=== PATIENT | male | born 1960 | race American Indian/Alaskan Native ===

== ENCOUNTER 2018-01-20 14:56 | Emergency (ER) | payer OTHER ==
[~2018-01-20 14:56] MED LIST: SUBLIMAZE IV ONE
--- NOTE | 2018-01-20 18:24 | Emergency Department Report ---
ED General Adult HPI - General Chief complaint: Multiple Trauma Stated complaint: FALL Time Seen by Provider: 01/20/18 18:24 Source: police, EMS, RN notes reviewed Mode of arrival: Ambulatory Limitations: Altered Mental Status - History of Present Illness Initial comments: Patient apparently fell while getting out of his upper bunk at snf. Patient was found approximately 5 hours prior to arrival unconscious on the floor of his cell, with bruising to the right side of his face at the lateral aspect of the eye. Estimated potential distance of fall 5 foot, but is uncertain if patient fell directly to floor, or slipped and struck head on bed rail while getting out of bed . Report from snf received sometime after patient's arrival, with history of patient being a 57-year-old male with swelling around the right eye secondary to a fall. [place] on scene found patient unconscious and prone on the floor of the cell, with suspicion for having fallen from the top bunk, which is where patient resided and slept. Fall was not witnessed, and it is uncertain for the duration of patient's presence on the floor. Patient's normal status was that of normal mobility and speaking in incomplete sentences. Is found to be incontinent. Patient GCS at that time was 9, with eye movements at level of 2, verbal movements score of 2, motor movement of 5, with stable vital signs blood pressure 158/108, pulse of 60, respiratory rate of 16, blood glucose of 137. Patient was moved to stretcher, secured with stretcher straps and restraint sapling, and extricated from facility. Obvious deformity of nose was noted, with swelling and contusion of right eye and dried blood in both nares, teeth were intact, chest, abdomen and extremities were examined, with abdomen being noted to be rigid, but chest into equal rise and extremity showing "weakness". Respirations were regular and unlabored. MD Complaint: altered mental status -: hour(s) (5 hours) Location: head (patient unable to give any history, limited history obtained from report by snf), face Quality: other (unable to determine due to altered mental status) - Related Data Allergies Allergy/AdvReac Type Severity Reaction Status Date / Time Penicillins Allergy Mild Anaphylaxis Verified 01/20/18 18:03 ED Review of Systems ROS: Stated complaint: FALL Other details as noted in HPI Comment: Unobtainable due to pts medical conditions ED Past Medical Hx - Past Medical History Previous Medical History?: No - Surgical History Past Surgical History?: No - Social History Smoking Status: Unknown if ever smoked Substance Use Type: Other (unknown) ED Physical Exam - General Limitations: Altered Mental Status General appearance: other (poorly responsive, but no acute distress, appears to be resting comfortably, almost sleeping, but no abnormal posturing, makes intermittent spontaneous movements such as repositioning or clasping hand comfortably) - Head Head exam: Present: atraumatic - Eye Eye exam: Present: PERRL, conjunctival injection, other (contusion right periorbital area with hematoma/swelling superior orbit and lid, subacute chart tidal hemorrhage right eye) - ENT ENT exam: Present: other (contusion nasal bridge, small laceration/abrasion, minimal bleeding) - Neck Neck exam: Present: normal inspection (palpation of neck or paracervical spinal tissue does not elicit discomfort or withdrawal posturing), other (no bony step off). Absent: tenderness - Respiratory Respiratory exam: Present: normal lung sounds bilaterally - Cardiovascular Cardiovascular Exam: Present: regular rate - GI/Abdominal GI/Abdominal exam: Present: soft. Absent: tenderness, guarding, rebound - Rectal Rectal exam: Present: deferred - Extremities Exam Extremities exam: Present: normal inspection. Absent: tenderness ED Course Vital Signs 01/20/18 18:03 Temperature 98.1 F Pulse Rate 78 Respiratory 16 Rate Blood Pressure 168/108 O2 Sat by Pulse 99 Oximetry - Reevaluation(s) Reevaluation #1: 01/20/18 20:14 Notified of bilateral subdural hematomas as a result of C-spine reading by Dr. Hernandez, still awaiting response from CT brain results Reevaluation #2: 01/20/18 20:56 CT scan report shows bilateral subdural hematomas, measuring 14 mm on right, 18 mm on left, with a significant 10 mm left to right tentorial herniation, as well as 10 mm subtentorial cerebellar hemorrhage noted as well. Patient intubated for airway control with rapid sequence intubation, using 20 mg etomidate, followed by 50 mg of rocuronium in succession, and patient's sedation was maintained with Diprivan drip, titrated to maintain sedation and as needed fentanyl for pain control and sedation. - Consultations Consultation #1: 01/20/18 20:58 Consultation with [facility] trauma service initiated, with description of bilateral subdural hematoma with tentorial shift, and treatment administered up-to-date including intubation, secondary to ventilation control, infusion of mannitol, and patient was accepted by Dr. Valencia, trauma surgeon. Time of acceptance 2050 hrs. ED Medical Decision Making - Radiology Data Radiology results: report reviewed Significant bilateral subdural hematomas with left to right tentorial shift of 10 mm Multiple facial fractures identified including nondisplaced right zygoma fracture, medial and inferior right orbital wall fractures with small herniation of inferior fat pad Cervical spine was negative for fracture. - Medical Decision Making Patient has an acute life-threatening intracranial hemorrhage with intracranial tentorial midline shift, who is obtunded, with GCS of 8, although vital signs remained stable. Patient will need immediate neurosurgical evaluation, and patient will be transferred to the nearest trauma center, [facility] , where consultation with physician performed, and accepted for transfer. Critical care time in (mins) excluding proc time.: 60 Critical care attestation.: If time is entered above; I have spent that time in minutes in the direct care of this critically ill patient, excluding procedure time. Critical Care Time: 60 minutes of critical care time provided, exclusive of intubation time. ED Disposition Disposition: [id number] ANOTHER TYPE HLTHCARE Is pt being admited?: No Does the pt Need Aspirin: No Condition: Critical
[2018-01-20 20:04] LABS: Amphetamine Screen,Urine PRESUMPTIVE NEGATIVE; Benzodiazepines Screen,Urine PRESUMPTIVE NEGATIVE; Cannabinoid Screen,Urine PRESUMPTIVE NEGATIVE; Cocaine Screen,Urine PRESUMPTIVE NEGATIVE; Methadone Screen,Urine PRESUMPTIVE NEGATIVE; Opiate Screen,Urine PRESUMPTIVE NEGATIVE
--- NOTE | 2018-01-20 20:04 | Cat Scan Report ---
FINAL REPORT PROCEDURE: CT CERVICAL SPINE WO CON TECHNIQUE: Computerized tomography of the cervical spine was performed from the skull base to T1 without contrast material. Moderate motion limits evaluation. HISTORY: Trauma. COMPARISON: No prior studies are available for comparison. FINDINGS: C1-2: No significant abnormality. C2-3: Slight disc bulge. C3-4: Possible focal central disc protrusion/herniation with slight thecal sac effacement and cord contact. C4-5: Posterior and uncovertebral osteophytes with mild canal stenosis and foraminal narrowing. C5-6: Posterior and uncovertebral osteophytes, more right-sided. Mild to moderate canal stenosis and foraminal narrowing, right greater than left. C6-7: Posterior and uncovertebral osteophytes with mild canal stenosis and [id number] foraminal narrowing. C7-T1: No significant abnormality. Other: Normal alignment. Multilevel osteophytes. Tiny foci of air seen about left 1st sternoclavicular joint, likely degenerative. Mild biapical scarring. Moderate sphenoid sinusitis. IMPRESSION: Images moderately degraded by motion. Consider repeat examination if there is continued clinical concern. No CT evidence of displaced fracture. Degenerative change. Sinusitis.
[2018-01-20 20:09] LABS: Bilirubin,Urine NEG (Negative); Blood,Urine SM (Negative); Color,Urine Yellow (Yellow); Mucus,Urine FEW /HPF
[2018-01-20] MEDS ORDERED: OSMITROL IV ONE (20:30)
[2018-01-20] MEDS ORDERED: VIAFLEX EMPTY CONTAINER IV ONE (20:30)
[2018-01-20 20:32] LABS: Basophils % (Auto) 0.1 % (0.0-1.8); Hematocrit 33.9 % (35.5-45.6); Hemoglobin 11.6 gm/dl (11.8-15.2); Lymphocytes # (Auto) 1.1 K/mm3 (1.2-5.4); Lymphocytes % (Auto) 12.6 % (13.4-35.0); Mean Corpuscular HGB Conc 34 % (32-34); Mean Corpuscular Hemoglobin 29 pg (28-32); Mean Corpuscular Volume 86 fl (84-94); Monocytes # (Auto) 0.9 K/mm3 (0.0-0.8); Monocytes % (Auto) 10.1 % (0.0-7.3); Platelet Count 281 K/mm3 (140-440); Red Blood Count 3.95 M/mm3 (3.65-5.03)
--- NOTE | 2018-01-20 20:34 | Cat Scan Report ---
FINAL REPORT EXAM: CT HEAD/BRAIN WO CON HISTORY: Trauma TECHNIQUE: Noncontrast CT axial images of the brain. PRIORS: None. FINDINGS: Diffuse, mixed density, but acute bilateral subdural hematomas extending from frontal to occipital convexities. Largest, low-density component in the bifrontal regions measure 14 mm on the right and 18 mm on the left in maximal width. Hyperdense components in the biparietal regions measure approximately 11 mm on the right and 14 mm on the left in maximal width. Right occipital component probably partially extending along the tentorium cerebelli measures up to 15 mm in maximal width. Possible small, hemorrhagic contusions in left inferior temporoparietal region, with some surrounding vasogenic edema. Diffuse mass effect, including effacement of underlying cortical sulci. Approximately 1 cm left to right midline shift, with at least partial subfalcine herniation of left ventricle to the right of midline. Mild enlargement of right temporal horn. Basilar cisterns remain patent. No apparent parenchymal mass or other gross hydrocephalus. No evidence of acute cortical infarct. No other abnormal extra-axial fluid or air collection. Osseous calvarium grossly intact. Some discontinuity and probable fracture involving the right orbit medial wall or lamina papyracea. Apparent fracture in the right zygomatic arch without significant displacement. Diffuse, heterogeneous opacification and probable hemorrhage in right maxillary sinus. Similar opacification of right frontal and sphenoid sinuses. Diffuse edema and probable hematoma in the right periorbital and frontoparietal scalp. IMPRESSION: 1. Diffuse, bilateral acute subdural hematomas, with associated mass effect as reported. 2. Possible small hemorrhagic contusions in left inferior temporoparietal region. 3. Right facial fractures will be further evaluated on dedicated CT facial bone examination. Dr. Madsen discussed results with Dr. Centeno on 20 January 2018 at approximately 2016 hours EST.
[2018-01-20 20:35] LABS: INR 0.97 (0.87-1.13)
[2018-01-20 20:39] LABS: Alanine Aminotransferase 8 units/L (7-56); Albumin 3.9 g/dL (3.9-5); BUN/Creatinine Ratio 12; Blood Urea Nitrogen 6 mg/dL (9-20); Calcium 9.2 mg/dL (8.4-10.2); Hemolysis Index 6
--- NOTE | 2018-01-20 20:44 | Cat Scan Report ---
FINAL REPORT PROCEDURE: CT FACIAL BONES WO CON TECHNIQUE: Computerized tomography of the facial bones and soft tissues with axial and coronal sections performed from the cranial aspect of the frontal sinuses to the caudal portion of the mandible without contrast material. HISTORY: Trauma COMPARISON: No prior studies are available for comparison. FINDINGS: An acute nondisplaced fracture is noted involving right zygomatic arch. There is fracture of the inferior wall right orbit with herniation of a small amount of orbital fat into the maxillary sinus. There is also an acute fracture in involving the medial wall of right orbit. An air-fluid level is noted in the right maxillary sinus. Nasal bones, mandible and pterygoid plates are intact. Air-fluid levels are also noted bilateral sphenoid and right frontal sinuses. There is partial opacification of bilateral ethmoid air cells. Bilateral mastoid air cells are clear. Moderate degree temporal region. Visualized upper cervical spine is intact except for degenerative changes at C4-5. Bilateral eye balls and retrobulbar structures are intact. IMPRESSION: Acute nondisplaced fractures involving right zygomatic arch, inferior and medial kirby of right orbit as described above. Air-fluid level in the right maxillary sinus most likely represents hemorrhage into the sinus. There also air-fluid levels in bilateral sphenoid and right ethmoid sinuses. Acute sinusitis cannot be excluded.
[2018-01-20] MEDS ORDERED: DIPRIVAN 10 MG/ML 1,000 MG/100 ML BOTTLE IV ONE (20:56)
[2018-01-20] MEDS ORDERED: SUBLIMAZE ONE (20:56)
[2018-01-20] MEDS ORDERED: NORMODYNE IV ONE ×2 (21:19→21:28)
[2018-01-20] MEDS ORDERED: SUBLIMAZE IV ONE (21:30)
[2018-01-20] MEDS ORDERED: AMIDATE IV ONE (23:11)
[2018-01-20] MEDS ORDERED: ZEMURON IV ONE (23:11)
[2018-01-20] MEDS ORDERED: VASELINE LIP THERAPY TP PRN (23:16)
[2018-01-20] MEDS ORDERED: ARTIFICIAL TEARS OPHTH OINT OU PRN (23:16)
[2018-01-20] MEDS ORDERED: NACL 0.9% 500 ML IV SCH (23:45)
--- NOTE | 2018-01-20 23:45 | XRay Report ---
FINAL REPORT PROCEDURE: XR CHEST 1V AP TECHNIQUE: Chest radiograph anteroposterior view. CPT 57654 HISTORY: ETT placement COMPARISON: No prior studies are available for comparison. FINDINGS: Heart: Normal. Mediastinum/Vessels: Normal. Lungs/Pleural space: Lungs are hyperinflated. There are no confluent infiltrates or mass lesions. Pleural spaces are clear.. Bony thorax: No acute osseous abnormality. Life support devices: Endotracheal tube is terminating about 2.5 centimeters above the charles.. IMPRESSION: COPD No acute pulmonary process Endotracheal tube is terminating 2.5 centimeters above the charles..
[2018-01-21] MEDS ORDERED: DIPRIVAN 10 MG/ML 1,000 MG/100 ML BOTTLE IV SCH
[2018-01-21 00:35] VITALS: BP 139/102
== END 2018-01-21 01:47 | disposition other institution (70) ==
LOC: ED 14:56
DX: S06.300A Unspecified focal traumatic brain injury without loss of consciousness, initial encounter (principal); W18.30XA Fall on same level, unspecified, initial encounter; Y93.89 Activity, other specified; Y92.143 Cell of prison as the place of occurrence of the external cause; Y99.8 Other external cause status; Z88.0 Allergy status to penicillin
CPT/HCPCS: 31500; 36415; 70450; 70486; 71045; 72125; 80053; 80307; 81001; 82803; 85025; 85610; 96374; 96375; 96376; 99291; G0480; J2150; J2704; J3010; 80320; 94002